=== PATIENT | female | born 1955 | race Caucasian/White ===

== ENCOUNTER 2023-09-26 09:16 | Outpatient (CLI) | payer OTHER | END 2023-09-26 09:17 | disposition home or self-care (01) | LOC: CT 09:16 | PROVIDERS: ATTEND Internal Medicine | DX: R10.31 Right lower quadrant pain (principal); K44.9 Diaphragmatic hernia without obstruction or gangrene; K59.00 Constipation, unspecified; Z90.710 Acquired absence of both cervix and uterus | CPT/HCPCS: 74177; 82565 ==